=== PATIENT | female | born 1945 | race African-American/Black ===

== ENCOUNTER 2016-12-14 18:22 | Emergency (ER) | payer OTHER ==
[~2016-12-14 18:22] MED LIST: ASA5GR PO; BEN25 PO; FLONASE NAS; GLUCOPHAGE1000 MG PO; GLUCOTRO10 PO; GLUCOTROL5 PO; HYDROCHLOROT25 MG PO; LISINOPRIL40 MG PO; MULTIPLE VIT PO; NORV5 PO; ZOCOR10 PO
[2016-12-14 19:06] LABS: BASOPHILS 0.3 %; BASOPHILS ABSOLUTE 0.03 10/3/uL (0.0-0.16); EOSINOPHILS 3.3 %; HEMATOCRIT 31.5 % (36.0-48.0); HEMOGLOBIN 10.5 g/dL (12.0-16.0); IMMATURE GRANULOCYTES 0.2 %; IMMATURE GRANULOCYTES ABSOLUTE 0.02 10/3/uL (0.0-0.11); LYMPHOCYTES 27.8 %; LYMPHOCYTES ABSOLUTE 2.55 10/3/uL (0.67-4.30); MANUAL DIFF NO %; MEAN CORPUS HGB CONC 33.3 g/dL (32.0-36.0); MEAN CORPUSCULAR HEMOGLOB 29.9 pg (26.0-34.0); MEAN CORPUSCULAR VOLUME 89.7 fL (80-100); MEAN PLATELET VOLUME 9.3 fL (9.2-13.0); MONOCYTES 7.3 %; MONOCYTES ABSOLUTE 0.67 10/3/uL (0.21-1.20); NEUTROPHILS 61.1 %; PLATELET COUNT 338 10/3/uL (150-400); RBC DISTRIBUTION WIDTH 15.1 % (12.0-16.0); RED CELL COUNT 3.51 10/6/uL (4.0-5.6); WHITE BLOOD CELLS 9.2 10/3/uL (4.5-10.5)
[2016-12-14 19:10] LABS: INTERNATIONAL NORMAL RATI 1.2 UNITS (-); PARTIAL THROMBO TIME 30.6 SEC (22.5-37.2)
[2016-12-14 19:12] LABS: PROTIME (NOT ORD) 14.6 SEC (12.0-14.5)
[2016-12-14 19:21] LABS: CALCIUM, SERUM 8.7 MG/DL (8.5-10.4); CHEST PAIN PROFILE TAT 0 Hrs 21 Mins; CHLORIDE, SERUM 94 MMOL/L (96-112); CO2 (CARBON DIOXIDE) 24 MMOL/L (24-34); POTASSIUM, SERUM 3.7 MMOL/L (3.5-5.3); SODIUM, SERUM 131 MMOL/L (135-148); TROPONIN I <0.02 NG/ML (<0.05)
[2016-12-14 19:23] LABS: BUN (BLOOD UREA NITROGEN) 30 MG/DL (6-23); CREATININE 2.42 MG/DL (0.55-1.02); GFR AFRICAN AMERICAN 23 ML/MIN (>=60); GFR NON AFRICAN AMERICAN 20 ML/MIN (>=60); GLUCOSE, SERUM 271 MG/DL (60-99)
== END 2016-12-15 02:42 | disposition home or self-care (01) ==
LOC: ER 18:22
PROVIDERS: Hospitalist
DX: M25.512 Pain in left shoulder (principal); I12.9 Hypertensive chronic kidney disease with stage 1 through stage 4 chronic kidney disease, or unspecified chronic kidney disease; E11.22 Type 2 diabetes mellitus with diabetic chronic kidney disease; N18.9 Chronic kidney disease, unspecified; Z86.711 Personal history of pulmonary embolism; Z88.8 Allergy status to other drugs, medicaments and biological substances; Z79.82 Long term (current) use of aspirin; Z79.84 Long term (current) use of oral hypoglycemic drugs; Z79.899 Other long term (current) drug therapy
CPT/HCPCS: 71020; 72040; 78582; 80048; 83735; 84484; 85025; 85379; 85610; 85730; 93005; 96374; 99284; A9540; A9567; J2405; J2800